=== PATIENT | female | born 1990 | race Asian ===

== ENCOUNTER 2019-02-01 18:38 | Inpatient (IN) | payer OTHER ==
[~2019-02-01] VITALS: Ht 157.5 cm; Wt 80.0 kg
--- NOTE | 2019-02-01 18:54 | TRIAGE ---
OB Triage Datetime Report Generated by CPN: 02/01/2019 18:54 Datetime: 02/01/2019 18:46 Chief Complaint: srom Rupture of Membranes: Ruptured Time Provider Notified: 02/01/2019 18:47 Provider Notified: dr. santos
[2019-02-01] MEDS ORDERED: OXYTOCIN 30 UNITS/LR 500 ML IV SCH ×2 (19:00)
[2019-02-01] MEDS ORDERED: BUTORPHANOL 2 MG INJ IV PRN (19:00)
[2019-02-01] MEDS ORDERED: CARBOPROST 250 MCG INJ IM PRN (19:00)
[2019-02-01] MEDS ORDERED: MISOPROSTOL 200 MCG TAB PR PRN (19:00)
[2019-02-01] MEDS ORDERED: LIDOCAINE 1% (MPF) 30 ML INJ INJ PRN (19:00)
[2019-02-01] MEDS ORDERED: METHYLERGONOVINE 0.2 MG INJ IM PRN (19:00)
[2019-02-01] MEDS ORDERED: OXYTOCIN 30 UNITS/LR 500 ML IV PRN (19:00)
[2019-02-01] MEDS ORDERED: IBUPROFEN 600 MG TAB PO PRN (19:00)
[2019-02-01 19:10] VITALS: Ht 157.5 cm; Wt 80.0 kg
--- NOTE | 2019-02-01 19:39 | HP ---
Date/Time of Note Date/Time of Note DATE: 02/01/19 TIME: 19:33 OB - History Hx of Present Free Text/Dictation 27 years old female 1 para 0 with last menstrual period of 05/10/2018 and EDC of 02/14/2019 patient had been seen me since midtrimester 25th weeks for care and she had been in my office today at 38-1/7 weeks of and at that time she complained of vaginal pressure and swollen hands and feet. she was sent home and she called back after a while that she had spontaneous rupture of membranes for which she was sent in to the hospital for delivery Last Menstrual Period: May 10, 2019 Estimated Due Date: Feb 14, 2019 : 1 Para: 0 Care: Limited Care Ultrasounds: Normal mid trimester US Past Family/Social History * Past Medical, Surgical, Family and Obstetric Histories reviewed from chart. Blood Type: O+ Rubella: immune RPR/VDRL: Negative GBS Status: Negative HBsAG: Negative OB Admission Exam Physical Exam HEENT: WNL Heart: Rhythm Normal Lungs: Clear, Equal Abdomen: WNL Extremities: Normal Reflexes: Normal Cervical Dilatation: Fingertip Effacement: 50% Station: -2 Membranes: Ruptured Amniotic Fluid: Clear Heart Rate: 130's Accelerations: Accelerations Present Decelerations: No Decelerations Varibility: Moderate Contractions on Admission: 6-10 Minutes Apart Intensity: Mild OB Assessment/Plan Reason for admission: rupture of membranes Other plan: Augmentation of labor and delivery MARISABEL DHILLON MD Feb 01, 2019 19:39
[2019-02-01] MEDS: LACTATED RINGER'S 1,000 ML IV SCH (20:52)
[2019-02-01] MEDS: MISOPROSTOL 50 MCG CAPSULE PO SCH (20:52)
[2019-02-02] MEDS: MISOPROSTOL 50 MCG CAPSULE PO SCH ×2 (01:14→06:15)
[2019-02-02] MEDS: LACTATED RINGER'S 1,000 ML IV SCH ×3 (01:14→08:38)
--- NOTE | 2019-02-02 02:41 | PREAC ---
Date/Time of Note Date/Time of Note DATE: 02/02/19 TIME: 02:39 Anesthesia Eval and Record Evaluation Time Pre-Procedure Interview DATE: 02/02/19 TIME: 02:39 Age 28 Sex female NPO: 8 hrs Preoperative diagnosis IUP Planned procedure L&D Epidural Past Medical History Past Medical History: None Surgery & Anesthesia Issues No known issue Meds Anticoagulation: No Beta Tuyet within 24 hr: No Reason Beta Tuyet not given: Pt. not on B-Tuyet Current Medications Lactated Ringer's 1,000 ml @ 125 mls/hr Q8H IV Last administered on 02/02/19at 01:14; Admin Dose 125 MLS/HR; Start 02/01/19 at 18:53 Butorphanol Tartrate (Stadol) 2 mg Q2H PRN IV .PAIN Last administered on 02/02/19at 00:17; Admin Dose 2 MG; Start 02/01/19 at 19:00 Lidocaine (Xylocaine 1% (Mpf)) 30 ml ONCE PRN INJ .EPISIOTOMY; Start 02/01/19 at 19:00 Oxytocin/Lactated Ringer's 500 ml @ 500 mls/hr ONCE POST IV ; Start 02/01/19 at 19:00 Oxytocin/Lactated Ringer's 500 ml @ 125 mls/hr POST IV ; Start 02/01/19 at 19:00 Ibuprofen (Motrin) 600 mg ONCE PRN PO .PAIN 1-5; Start 02/01/19 at 19:00 Oxytocin/Lactated Ringer's 500 ml @ 0 mls/hr ONCE PRN IV .VAGINAL BLEEDING; Start 02/01/19 at 19:00 Methylergonovine Maleate (Methergine) 0.2 mg ONCE PRN IM .VAGINAL BLEEDING; Start 02/01/19 at 19:00 Carboprost Tromethamine (Hemabate) 250 mcg ONCE PRN IM .VAGINAL BLEEDING; Start 02/01/19 at 19:00 Misoprostol (Cytotec) 1,000 mcg ONCE PRN [place] .VAGINAL BLEEDING; Start 02/01/19 at 19:00 Misoprostol (Cytotec 50 Mcg Capsule) 50 mcg Q4 PO Last administered on 02/02/19at 01:14; Admin Dose 50 MCG; Start 02/01/19 at 21:00 Meds reviewed: Yes Allergies Coded Allergies: No Known Allergy (Unverified , 02/01/19) Allergies Reviewed: Yes Labs/Studies Labs Reviewed: Reviewed by anesthesiologist Result Diagram: 02/01/19 1900 Laboratory Tests 02/01/19 19:00 Blood Bank Test 02/01/19 19:00 Antibody Screen NEGATIVE Blood Type O POSITIVE Rh Immune Globulin Candidate NO test: Positive Studies: ECG Pre-procedure Exam Last vitals BP:112/56, P:87, Spo2:100%, T:98,8 Airway: Adequate mouth opening, Adequate thyromental dist Mallampati: Mallampati II Teeth: Normal Lung: Normal Heart: Normal ASA Physical Status ASA physical status: 2 Emergency: None Planned Anesthetic Neuraxial: Epidural Planned Pain Management Epidural Pre-operative Attestations Prior to commencing anesthesia and surgery, the patient was re-evaluated, there was verification of: *The patient's identity *The results of appropriate recent lab work and preoperative vital signs *The above evaluation not changing prior to induction *Anesthetic plan, risk benefits, alternative and complications discussed with patient/family; questions answered; patient/family understands, accepts and wishes to proceed. RANDALL MATA MD Feb 02, 2019 02:41
[2019-02-02] MEDS ORDERED: NALOXONE (0.4 MG/ML) INJ IV PRN (03:00)
[2019-02-02] MEDS ORDERED: DIPHENHYDRAMINE 50 MG INJ IV PRN ×2 (03:00→10:30)
[2019-02-02] MEDS ORDERED: FENTAnyl 2MCG/ML-ROPIV 0.2% 100 ML BAG EPI SCH (03:00)
[2019-02-02] MEDS ORDERED: ONDANSETRON 4 MG INJ IV PRN ×2 (03:00→10:30)
[2019-02-02] MEDS ORDERED: OXYTOCIN 30 UNITS/LR 500 ML IV SCH (06:30)
[2019-02-02] MEDS ORDERED: AMPICILLIN 2 GM/NS (PMX) 100 ML IVPB ONE (08:00)
[2019-02-02] MEDS ORDERED: ACETAMINOPHEN 325 MG TAB PO ONE (09:30)
--- NOTE | 2019-02-02 10:18 | LDN ---
Date/Time of Note Date/Time of Note DATE: 02/02/19 TIME: 10:13 Delivery Summary 38.2 weeks with premature rupture of membranes, patient had an augmentation of labor vacuum-assisted delivery due to heart tones decelerations and maternal fever done. Baby boy 9 NICU team present Third degree perineal laceration repaired under epidural anesthesia. Patient tolerated the procedure well Fetus stable under observation due to fever Placental cultures done for aerobic and anaerobic cultures and maternal side. Cord pHs also done Weeks of Gestation 38.2 Assisted Vaginal Delivery: Vacuum Placenta Delivered: Spontaneously Meconium: none Episiotomy: No Perineal laceration: 3 Anesthesia type: Epidural Sponge & Needle done & correct: Yes All needle counts correct: Yes Any foreign bodies felt in the: No Infant Delivery Information Sex Infant Sex: male Apgars 1 Minute: 9 Suctioning Nose & mouth suctioned at leonides: Yes Umbilical Cord Umbilical cord with: 3 Vessels Cord presentations: no nuchal cord Cord Blood was obtained: Yes Mother & Baby Disposition Disposition Mom & Baby to Maternity; Good: Yes MARISABEL DHILLON MD Feb 02, 2019 10:18
[2019-02-02] MEDS ORDERED: DIBUCAINE 1% 30 GM OINT TOP PRN (10:30)
[2019-02-02] MEDS ORDERED: SENNA/DOCUSATE NA (8.6MG/50MG) TAB PO PRN (10:30)
[2019-02-02] MEDS ORDERED: MISOPROSTOL 200 MCG TAB PR PRN (10:30)
[2019-02-02] MEDS ORDERED: ACETAMINOPHEN 325 MG TAB PO PRN ×2 (10:30)
[2019-02-02] MEDS ORDERED: ONDANSETRON 4 MG TAB PO PRN (10:30)
[2019-02-02] MEDS ORDERED: OXYTOCIN 30 UNITS/LR 500 ML IV PRN (10:30)
[2019-02-02] MEDS ORDERED: WITCH HAZEL/GLYCERIN PAD PR PRN (10:30)
[2019-02-02] MEDS ORDERED: MAGNESIUM HYDROXIDE 30ML CUP PO PRN (10:30)
[2019-02-02] MEDS ORDERED: CARBOPROST 250 MCG INJ IM PRN (10:30)
[2019-02-02] MEDS ORDERED: METHYLERGONOVINE 0.2 MG INJ IM PRN (10:30)
[2019-02-02] MEDS ORDERED: HYDROCODONE/APAP (5/325) TAB PO PRN (10:30)
[2019-02-02] MEDS ORDERED: BENZOCAINE 20% 56 ML SPRAY TOP PRN (10:30)
[2019-02-02] MEDS ORDERED: DIPHENHYDRAMINE 25 MG CAP PO PRN (10:30)
[2019-02-02] MEDS ORDERED: LANOLIN HPA 1 PKT TOP PRN (10:30)
[2019-02-02] MEDS ORDERED: AMPICILLIN 1 GM/NS (PMX) 50 ML IVPB SCH (12:00)
[2019-02-02 12:29] VITALS: BP_SYST 111; PULSE 66; RESP 18
[2019-02-02 12:32] VITALS: BP 111/57; PULSE 84; RESP 18
[2019-02-02] MEDS: IBUPROFEN 800 MG TAB PO SCH ×3 (12:52→23:38)
[2019-02-02 13:00] VITALS: BP 98/68; PULSE 65; RESP 18
[2019-02-02] MEDS: CEFAZOLIN 1 GM/50 ML (PMX) 50 ML IVPB SCH ×2 (14:55→21:06)
[2019-02-02] MEDS: LACTATED RINGER'S 1,000 ML IV* SCH ×2 (14:56→18:18)
[2019-02-02 16:00] VITALS: BP 89/49; PULSE 89; RESP 18
[2019-02-02 20:00] VITALS: BP 107/66; PULSE 81; RESP 20
[2019-02-02] MEDS: HYDROCODONE/APAP (5/325) TAB PO PRN (21:07)
[2019-02-03] VITALS: BP 99/59; PULSE 74; RESP 20
[2019-02-03] MEDS: LACTATED RINGER'S 1,000 ML IV* SCH ×3 (01:13→18:18)
[2019-02-03 04:00] VITALS: BP_SYST 95; BP_SYST 99; BP_DIAS 59; BP_DIAS 72; PULSE 74; PULSE 90; RESP 18
[2019-02-03] MEDS: CEFAZOLIN 1 GM/50 ML (PMX) 50 ML IVPB SCH (05:54)
[2019-02-03] MEDS: IBUPROFEN 800 MG TAB PO SCH ×3 (05:55→18:17)
[2019-02-03 08:00] VITALS: BP 87/45; PULSE 69; RESP 17
--- NOTE | 2019-02-03 11:45 | PN ---
Date/Time of Note Date/Time of Note DATE: 02/03/19 TIME: 11:43 Assessment/Plan Lines/Catheters IV Catheter Type (from Nrsg): Peripheral IV Subjective 24 Hr Interval Summary day 1 Afebrile, feels good breast-feeding, uterus contracted is normal. Lochia normal Ambulatory Constitutional: no complaints Feeding: advancing diet Pain Control: mild Detailed Summary Eyes: no complaints ENT: no complaints Respiratory: no complaints Cardiovascular: no complaints Gastrointestinal: no complaints Genitourinary: no complaints Musculoskeletal: no complaints Skin: no complaints Neurologic: no complaints Endocrine: no complaints Lymphatic: no complaints Psychological: no complaints, nl mood/affect Immunologic: no complaints Exam/Review of Systems Vital Signs Vitals Vital Signs Date Temp Pulse Resp B/P (MAP) Pulse Ox O2 O2 Flow FiO2 Time Delivery Rate 02/03/19 98.8 69 17 87/45 (59) Room Air 08:00 Intake and Output 02/02/19 02/02/19 02/03/19 1414:59 22:59 06:59 IntakeIntake Total 750 ml 1437 ml OutputOutput Total 1200 ml 1000 ml 800 ml BalanceBalance -1200 ml -250 ml 637 ml Exam Constitutional: alert, oriented, well developed Psych: no complaints, nl mood/affect Head: normocephalic, atraumatic Eyes: nl conjunctiva, EOMI, nl lids, nl sclera ENMT: nl external ears & nose, nl lips & teeth, nl nasal mucosa & septum, mucosa pink and moist Neck: supple, non-tender Respiratory: clear to auscultation, normal air movement Cardiovascular: regular rate and rhythm, nl pulses Gastrointestinal: soft, nl liver, spleen, non-tender Musculoskeletal: nl extremities to inspection, nl gait and stance Extremities: normal pulses Neurological: LAWN CARE WORKER II-XII intact, nl mental status, nl speech, nl strength Skin: nl turgor, rash or lesions Lymph: nl lymph nodes Results Result Diagram: 02/03/19 0748 MARISABEL DHILLON MD Feb 03, 2019 11:45
[2019-02-03] MEDS: CEPHALEXIN 500 MG CAP PO SCH ×2 (12:25→18:17)
[2019-02-03] MEDS ORDERED: PETROLATUM 5 GM OINT TOP ONE (14:48)
--- NOTE | 2019-02-03 15:50 | PAC ---
Date/Time of Note Date/Time of Note DATE: 02/03/19 TIME: 15:50 Post-Anesthesia Notes Post-Anesthesia Note Last documented vital signs Vital Signs Date Temp Pulse Resp B/P (MAP) Pulse Ox O2 O2 Flow FiO2 Time Delivery Rate 02/03/19 98.8 69 17 87/45 (59) Room Air 08:00 Activity: WNL Respiratory function: WNL Cardiovascular function: WNL Mental status: Baseline Pain reasonably controlled: Yes Hydration appropriate: Yes Nausea/Vomiting absent: Yes Comments BP:112/56, P:78, Spo2:100%, T:98,9 RANDALL MATA MD Feb 03, 2019 15:50
[2019-02-03 16:37] VITALS: BP 101/74; PULSE 76; RESP 18
[2019-02-03 20:00] VITALS: BP 103/65; PULSE 88; RESP 20
[2019-02-04] MEDS: CEPHALEXIN 500 MG CAP PO SCH ×3 (00:40→12:36)
[2019-02-04] MEDS: LACTATED RINGER'S 1,000 ML IV* SCH (01:38)
[2019-02-04] MEDS: HYDROCODONE/APAP (5/325) TAB PO PRN (03:25)
[2019-02-04 04:00] VITALS: BP 134/77; PULSE 89; RESP 18
[2019-02-04] MEDS: IBUPROFEN 800 MG TAB PO SCH ×3 (05:54→12:37)
[2019-02-04 08:00] VITALS: BP 111/53; PULSE 71; RESP 18
[2019-02-04] MEDS ORDERED: MEASLES,MUMPS,RUBELLA VACCINE INJ SC* ONE (09:00)
[2019-02-04] MEDS ORDERED: VARICELLA VACCINE LIVE/PF 1,350 UNIT/0.5 ML ML SC* ONE (09:00)
[2019-02-04] MEDS ORDERED: DIPHTH/TET/ACEL PERTUSS (ADULT) 0.5 ML VIAL IM* ONE (09:00)
--- NOTE | 2019-02-04 12:00 | PD.PPDC ---
DESULFURIZER HAND Discharge Instruction Diagnosis [id number] Final Diagnosis: Uinng9w S/P Condition [id number] Patient Condition: Uzcun4t Good Diet Zftff4Tv Diet: Kqmzm6n Resume Regular Diet Activity/Restrictions [id number] Activity: Facca6f May Shower [id number] Restrictions: Vsquy0z No Lifting No Sexual Activity Nothing in the Vagina No [place] No Tampons, douche Follow-up Follow-up with Physician: 2, Week/Weeks Return to clinic for Knaxl7Ou COMPUTATIONAL THEORY SCIENTIST Instructions: [id number] Fever greater than 101 Chills Worsening abdominal pain Excessive Vaginal Bleeding More than 2 pads per hour Unable to tolerate diet [id number] OB Instructions: Rbdee2j Breast Tenderness Depression Blurried Vision Headache HATTIE MAURICE MD Feb 04, 2019 12:00
--- NOTE | 2019-02-04 12:05 | DS ---
Date/Time of Note Date/Time of Note DATE: 02/04/19 TIME: 12:02 Obstetrical Discharge Record Final Diagnosis Final Diagnosis: Term delivered Vaginal Delivery Obstetrical Delivery: Spontaneous, Laceration, Repaired Complications Induction: Yes Rupture of Membranes: No Condition on Discharge Physical Assessment Last Vitals: VSS afebrile Voiding: Yes Bowel Movement: No Breast: Soft, non-tender Fundus: Firm Abdomen and Incision: soft Episiotomy: laceration 3rd degree haling ok no BM yet MOM 30cc Calf Tenderness: No Patient Condition: Stable HATTIE MAURICE MD Feb 04, 2019 12:05
[2019-02-04] MEDS ORDERED: MAGNESIUM HYDROXIDE 30ML CUP PO ONE (12:30)
--- NOTE | 2019-02-05 15:03 | DELSUM ---
Delivery Summary A-C Datetime Report Generated by N: 02/05/2019 15:03 DELIVERY PERSONNEL Origination Specialist: Pebbles Abrams MATERNAL INFORMATION Delivery Anesthesia: Epidural Medications in Delivery: 30 units pitocin 500LR Delivery QBL (ml): 300 (Annotations: Data stored by [facility] on behalf of user) Placenta Cultured: No Maternal Complications: None LABOR SUMMARY EDC: 02/14/2019 00:00 No. Babies in Womb: 1 Attempted: No Labor Anesthesia: None LABOR INFORMATION Onset of Labor: 02/01/2019 03:00 Complete Dilatation: 02/02/2019 08:46 Cervical Ripening Agents: Cytotec @ 50 MCG (Annotations: DOSE #1) Oxytocin: Induction Group B Beta Strep: Negative Antibiotics # of Doses: 1 Antibiotics Time of Last Dose: 02/02/2019 08:57 Steroids Given: None Reason Steroids Not Administered: Not Applicable MEMBRANES Membranes Rupture Method: Spontaneous Rupture of Membranes: 02/01/2019 17:30 Length of Rupture (hr): 16.05 Amniotic Fluid Color: Clear Amniotic Fluid Amount: Copious Amniotic Fluid Odor: None STAGES OF LABOR Stage 1 hr: 29 Stage 1 min: 46 Stage 2 hr: 0 Stage 2 min: 47 Stage 3 hr: 0 Stage 3 min: 7 Total Time in Labor hr: 30 Total Time in Labor min: 40 VAGINAL DELIVERY Episiotomy: None Laceration Extension: Third Degree Laceration Type: Perineal Laceration Repair: Yes Initial Vag Sponge Count: 10 Final Vag Sponge Count: 10 Initial Vag Sharps Count: 1+4 Final Vag Sharps Count: 5 Sponge Count Correct: Yes; Vaginal Sweep Performed Sharps Count Correct: Yes BABY A INFORMATION Infant Delivery Date/Time: 02/02/2019 09:33 Method of Delivery: Vaginal Born in Route : No : N/A Forceps: N/A Vacuum Extraction: N/A Shoulder Dystocia : No ASSISTED DELIVERY BABY A Catheter Prior to Procedure: Yes Vacuum Number of Pulls: 3 Vacuum Number of PopOffs: 0 Reduce Pressure btwn Ctx: Yes Vacuum [employer] Parts Interpreter: kiwi SHOULDER DYSTOCIA BABY A Delivery Date/Time: 02/02/2019 09:33 PRESENTATION/POSITION BABY A Presentation: Cephalic Cephalic Presentation: Vertex Breech Presentation: N/A PLACENTA INFORMATION BABY A Placenta Delivery Time : 02/02/2019 09:40 Placenta Method of Delivery: Expressed Placenta Status: Delivered SCORES BABY A Heart Rate 1 min: >100 bpm Resp Effort 1 min: Good Cry Reflex Irritability 1 min: Cough/Sneeze/Pulls Away Muscle Tone 1 min: Active Motion Color 1 min: Blue/Pale Resuscitation Effort 1 min: Tactile Stimulation SCORE 1 MIN: 8 Heart Rate 5 min: >100 bpm Resp Effort 5 min: Good Cry Reflex Irritability 5 min: Cough/Sneeze/Pulls Away Muscle Tone 5 min: Active Motion Color 5 min: Body Haskins, Extremit Blue Resuscitation Effort 5 min: Tactile Stimulation SCORE 5 MIN: 9 INFANT INFORMATION BABY A Gestational Age at Delivery: 38.2 Gestational Status: Early Term- 37- 38.6 Weeks Outcome : Liveborn Infant Condition : Stable Sex: Male IDENTIFICATION/MEDS BABY A ID Band Number: [id number] ID Band Location: Right Leg; Left Arm Sensor Applied: Yes Sensor Number: [id number] Sensor Location : Cord Clamp Vitamin K Given : Not Given Erythromycin Given: Not Given WEIGHT/LENGTH BABY A Infant Birthweight (gm): 3600 Infant Weight (lb): 7 Weight (oz): 15 Infant Length (in): 21.00 Length (cm): 53.34 CORD INFORMATION BABY A No. Cord Vessels: 3 Nuchal Cord : N/A Cord Blood Taken: Yes Suction: Mouth; Nose ASSESSMENT BABY A Infant Complications: Extended Tachycardi; Multiple Late Decels; Multiple Variable Decels; Oth er Infant Complications- Other: Fever 101.5 Physical Findings at Delivery: Within Normal Limits Infant Respirations: Appears Normal Us Customs And Border Officer/ALS Called : No Infant Care By: haresh Transferred To: Remains with Mother
== END 2019-02-04 14:25 | disposition home or self-care (01) | DRG 768 ==
LOC: OBT 18:38 → L-D 18:40 → OBT 18:45 → PP1 02-02 11:56
PROVIDERS: ADMIT Obstetrics & Gynecology; ATTEND Obstetrics & Gynecology
PROC: 10D07Z6 Extraction of Products of Conception, Vacuum, Via Natural or Artificial Opening (ICD-10-PCS; principal; 2019-02-02)
PROC: 0DQR0ZZ Repair Anal Sphincter, Open Approach (ICD-10-PCS; 2019-02-02)
DX: O42.02 Full-term premature rupture of membranes, onset of labor within 24 hours of rupture (principal); Z37.0 Single live birth; O70.20 Third degree perineal laceration during delivery, unspecified; Z3A.38 38 weeks gestation of pregnancy; Z23 Encounter for immunization
CPT/HCPCS: 36415; 36600; 62319; 76815; 82803; 85025; 85610; 85730; 86592; 86850; 86900; 86901; 87070; 87075; 87340; 88307; 90715; 90716; 99464; G0463; J0290; J0595; J0690; J2590; J3010; J7120